=== PATIENT | male | born 1990 | race Caucasian/White ===

== ENCOUNTER 2016-11-21 01:23 | Emergency (ER) | payer SELFPAY ==
[~2016-11-21] VITALS: Ht 190.5 cm; Wt 82.6 kg
[2016-11-21 01:25] VITALS: TEMP 36.8; Ht 190.5 cm; Wt 82.6 kg
--- NOTE | 2016-11-21 01:27 | EMERGENCY ROOM VISIT NOTE ---
History Report prepared by [place]: Marc Monzon Under the Supervision of: Dr. Cole Villavicencio M.D. First contact with patient: 01:25 Chief Complaint: ALCOHOL OVERDOSE Stated Complaint: ALCOHOL History of Present Illness The patient is a 26 year old male who presents to the Emergency Room via EMS for a persistent alcohol intoxication that started prior to arrival tonight. Per EMS, the patient was celebrating his birthday by himself tonight, and was drinking alcohol. The patient was found by police hitting car windows with his right elbow. The patient was picked up by police after that. He did vomit 3 times so far in the ED. The patient denies any head injury, and denies any right hand or elbow pain. The patient states that he drinks occasionally but binge-drank tonight. History limited secondary to patient's alcohol intoxication. Source of History: patient History Limited By: intoxication Onset: Prior to arrival tonight Position: other (global - alcohol intoxication) Symptom Intensity: hitting right elbow [place] Timing: other (persistent) Note: Associated symptoms: Denies right hand or elbow pain. Review of Systems ROS limited secondary to patient's alcohol intoxication. Past Medical & Surgical Medical Problems: (1) No chronic problems Family History Patient reports no known family medical history. Social History Smoking Status: Never Smoker Alcohol Use: occasionally Drug Use: none Marital Status: single Housing Status: lives with roommate Occupation Status: [employer] Current/Historical Medications Unable to Obtain Active Prescriptions or Reported Meds Allergies Coded Allergies: No Known Allergies (Unverified , 10/11/14) Physical Exam Vital Signs Date Time Temp Pulse Resp B/P (MAP) Pulse Ox O2 Delivery O2 Flow Rate FiO2 11/21/16 09:43 88 18 108/62 97 11/21/16 08:00 77 18 110/51 96 Room Air 11/21/16 06:19 60 11/21/16 06:00 58 16 100/44 96 Room Air 11/21/16 05:00 62 16 100/40 95 Room Air 11/21/16 04:00 67 16 90/45 93 Room Air 11/21/16 03:00 72 16 101/42 95 Room Air 11/21/16 02:24 68 16 105/54 96 Room Air 11/21/16 01:29 106 11/21/16 01:25 36.8 79 20 180/105 96 Room Air Physical Exam GENERAL: Patient is heavily intoxicated. Smells of alcohol. Well appearing and in no acute distress. HEAD: No evidence of Trauma. AT/NC EYES: Injected conjunctiva. Normal EOM. Pupils equal/reactive. ENT: Mucous membranes moist, no nasal congestion, . NECK: No step-offs, no adenopathy, no meningismus, trachea is midline. LUNGS: No dyspnea. Clear to auscultation and equal bilaterally. No wheeze, no rhonchi. HEART: Regular rate and rhythm. No murmurs, rubs, gallops appreciated. ABDOMEN: Soft, nontender, bowel sounds positive, no masses appreciated, no peritonitis. BACK: No midline tenderness, no CVA tenderness EXTREMITIES: Slight abrasion over right flexor elbow with full range of motion without pain. Normal motion all extremities, no cyanosis, no edema. NEUROLOGIC: Intoxicated. No acute motor or sensory deficits, no focal weakness, cranial nerves grossly intact. SKIN: No rash, no jaundice, no diaphoresis. Medical Decision & Procedures Laboratory Results 11/21/16 02:26 Test 11/21/16 02:26 Anion Gap 9.0 mmol/L (3-11) Est Creatinine Clear Calc Drug Dose 133.1 ml/min Estimated GFR () 121.6 Estimated GFR (Non- 104.9 BUN/Creatinine Ratio 17.2 (10-20) Calcium Level 8.6 mg/dl (8.5-10.1) Ethyl Alcohol mg/dL 245.0 mg/dl (0-3) Laboratory results as reviewed by me. ED Course 0141: The patient was evaluated in room B4B. A partial history and physical exam was performed. 0730: Reevaluated the patient. Discussed results and discharge instructions: he verbalized understanding and agreement. The patient is ready for discharge. Medical Decision Differential: Alcohol Intoxication, Drug Intoxication, Electrolyte Abnormality, Trauma, Intracranial Event, Toxicological, Excited Delirium, Serotonin Syndrome , amongst other pathologies entertained. 26 yr old intoxicated male brought in by EMS after found stumbling downtown hitting right elbow off cars. Patient with no evidence nor history for trauma other than abrasion to right elbow and no pain on ROM elbow. Protecting airway and breathing comfortably throughout ED stay. EtOH positive. Monitored and discharged when awake, alert, oriented and denies any complaints. Medication Reconcilliation Current Medication List: was personally reviewed by me No medications on list. Blood Pressure Screening Patient's blood pressure: Normal blood pressure Initially flexing arm against blood pressure cuff, blood pressure returned to normal after falling asleep. Impression Primary Impression: Alcohol abuse Additional Impression: Alcohol intoxication Scribe Attestation The scribe's documentation has been prepared under my direction and personally reviewed by me in its entirety. I confirm that the note above accurately reflects all work, treatment, procedures, and medical decision making performed by me. Departure Information Dispostion Home / Self-Care Prescriptions Unable to Obtain Active Prescriptions or Reported Meds Referrals [facility] ([facility]) Patient Instructions My [facility] Additional Instructions You were evaluated in emergency department for intoxication. This is a sign of Alcohol Abuse and should not be taken lightly. You had a blood alcohol level that was significantly elevated. Over the next 24 hours keep well hydrated and eat light meals. Don't drink any more alcohol. This is important. Please discuss this visit with your Primary Care Provider and/or your loved ones. Unless an exceptional circumstance, the Hospital DOES NOT contact anyone during your visit, nor is your Protected Medical Information released to anyone without your approval/request. This means we do not contact your Parents, the Police, etc. However, you will likely receive a bill from the Hospital and/or your Insurance company, which will usually be sent to the Primary Policy [place] (often one's Parents) If the Police were involved you will likely be cited for public intoxication. Often this will result in you being required to take Alcohol Education classes. Call 911 or return to Emergency Department if you develop: Passing out, difficulty breathing, many episodes of vomiting, blood in vomit or stool, abdominal pain, fevers, or other severe symptoms. We are always here to help if you feel you need further evaluation or treatment. Problem Qualifiers
[2016-11-21 03:04] LABS: BUN/CREATININE RATIO 17.2 (10-20); CALCIUM 8.6 mg/dl (8.5-10.1); POTASSIUM 3.6 mmol/L (3.5-5.1)
[2016-11-21 09:43] VITALS: BP 108/62; PULSE 88; O2SAT 97
== END 2016-11-21 09:48 | disposition home or self-care (01) ==
LOC: EDBD 01:23 → C.EDB 01:24
DX: F10.120 Alcohol abuse with intoxication, uncomplicated (principal); Y90.8 Blood alcohol level of 240 mg/100 ml or more